=== PATIENT | male | born 1935 | race Caucasian/White ===

== ENCOUNTER → 2021-03-18 | Outpatient (CLI) | payer MEDICARE | END | disposition home or self-care (01) | LOC: LAB SHORT 07:21 → PLD 07:21 | DX: C44.629 Squamous cell carcinoma of skin of left upper limb, including shoulder (principal) | CPT/HCPCS: 88305 ==

== ENCOUNTER 2023-01-03 20:50 | Emergency (ER) | payer OTHER, MEDICARE ==
[~2023-01-03] VITALS: Ht 175.3 cm; Wt 83.9 kg
[2023-01-03 21:04] VITALS: BP 155/89
[2023-01-03] MEDS ORDERED: Amoxicillin500 MG PO (22:08)
== END 2023-01-03 23:38 | disposition home or self-care (01) ==
LOC: ER 20:50
DX: L76.21 Postprocedural hemorrhage of skin and subcutaneous tissue following a dermatologic procedure (principal); Z88.0 Allergy status to penicillin
CPT/HCPCS: 12020; 99283-25

== ENCOUNTER 2025-01-12 09:25 | Day surgery (SDC) | payer OTHER ==
[~2025-01-12] VITALS: Ht 175.3 cm; Wt 87.0 kg
[~2025-01-12 09:25] MED LIST: ALFU10 PO; ASPI81CH PO; ATOR40TA PO; Amoxicillin500 MG PO; CALCIPOTRIENE60 G3 TOP; CARV3.125 PO; CLOP75 PO; Desowen60 GM TOP; FERSU300 PO; FLUOROURACIL30 G2 TOP; Flonase 0.05% N16 GM; ISOSORBIDE MONO60 MG PO; LACT PO; LIDO700A20 TOP; METPRE4DP PO; MIRALAX17 GM PO; MULTI-VITAMIN1 EAC2 PO; MUPIROCIN1 G1 TOP; NITR.4SL SL; NS 500 ML IV ONE; RANO500T PO; REGULOID POWDE PO
[2025-01-12] MEDS ORDERED: CeFAZolin Sodium 2,000 MG VIAL ONE (09:45)
[2025-01-12] MEDS ORDERED: Aspir 8181 MG (09:58)
[2025-01-12] MEDS ORDERED: FINA5 (09:59)
[2025-01-12] MEDS ORDERED: OMEP20ER (10:00)
[2025-01-12] MEDS ORDERED: NS 500 ML IV ONE (10:16)
--- NOTE | 2025-01-12 10:16 | NUR ---
01/12/25 Solange Moreno LOCAL INJECTION MIX (9ML LIDOCAINE 1% W/EPI 1:100,000 W/1ML SOD BICARB). RIGHT HAND AT 0951, TOTAL 5ML.
[2025-01-12 11:38] VITALS: BP 116/80
== END 2025-01-12 11:25 | disposition home or self-care (01) ==
LOC: ORSCSDS 09:25
PROVIDERS: Orthopaedic Surgery
PROC: 0LN70ZZ Release Right Hand Tendon, Open Approach (ICD-10-PCS; principal; 2025-01-12 10:30)
DX: M65.311 Trigger thumb, right thumb (principal); I25.10 Atherosclerotic heart disease of native coronary artery without angina pectoris; I25.2 Old myocardial infarction; I48.0 Paroxysmal atrial fibrillation; E11.9 Type 2 diabetes mellitus without complications; I10 Essential (primary) hypertension; E78.5 Hyperlipidemia, unspecified; I50.9 Heart failure, unspecified; Z79.82 Long term (current) use of aspirin; Z79.899 Other long term (current) drug therapy; Z87.891 Personal history of nicotine dependence
CPT/HCPCS: 82947; J0690; J2704; J7040